=== PATIENT | male | born 1985 | race Caucasian/White ===

== ENCOUNTER 2022-08-31 13:24 | Emergency (ER) | payer MEDICARE, MEDICAID ==
[~2022-08-31] VITALS: Ht 188 cm; Wt 134.0 kg
[2022-08-31 15:12] LABS: BASOPHILS # (AUTO) 0.1 X10'3 (0-0.2); BASOPHILS % (AUTO) 0.9 % (0-1); EOSINOPHILS % (AUTO) 0.2 % (0-6); HEMATOCRIT 51.7 % (42.0-52.0); HEMOGLOBIN 17.8 g/dl (14.0-17.9); LYMPHOCYTES % (AUTO) 10.4 % (21-51); MEAN CORPUSCULAR HEMOGLOBIN 31.4 PG (27.0-31.0); MEAN CORPUSCULAR HGB CONC 34.4 g/dL (33.0-36.5); MEAN CORPUSCULAR VOLUME 91.3 FL (78-98); MEAN PLATELET VOLUME 8.2 FL (7.4-10.4); MONOCYTES # (AUTO) 0.5 X10'3 (0-0.9); MONOCYTES % (AUTO) 4.5 % (2-12); NEUTROPHILS # (AUTO) 8.5 X10'3 (1.8-7.7); PLATELET COUNT 260 X10'3 (140-440); RED BLOOD COUNT 5.66 X10'6 (4.70-6.10); RED CELL DISTRIBUTION WIDTH 14.3 % (11.5-14.5); WHITE BLOOD COUNT 10.1 X10'3 (4.5-11.0)
[2022-08-31 15:27] LABS: ALANINE AMINOTRANSFERASE 57 U/L (12-78); ALBUMIN 4.8 G/DL (3.4-5.0); ALBUMIN/GLOBULIN RATIO 1.2 (1.1-1.5); ALKALINE PHOSPHATASE 104 IU/L (46-116); ANION GAP 13 (8-16); ASPARTATE AMINO TRANSFERASE 37 U/L (10-37); BILIRUBIN,TOTAL 1.6 MG/DL (0.1-1.0); BLOOD UREA NITROGEN 13 MG/DL (7-18); CALCIUM 9.7 MG/DL (8.5-10.1); CHLORIDE 100 MMOL/L (99-107); CREATININE 0.93 MG/DL (0.60-1.10); GLUCOSE 138 MG/DL (70-104); POTASSIUM 3.4 MMOL/L (3.5-5.1); SODIUM 141 MMOL/L (135-145); TOTAL CARBON DIOXIDE 28.4 MMOL/L (24-32); TOTAL PROTEIN 8.7 G/DL (6.4-8.2); eGFR 90 ML/MIN
[2022-08-31 15:38] LABS: ETHANOL < 0.010 GM/DL (0.0-0.010)
[2022-08-31 16:56] LABS: CLARITY,URINE CLEAR (Clear); COLOR,URINE YELLOW (Yellow); PH,URINE 5.5 (4.8-8.0); UA COLLECTION TYPE VOIDED
[2022-08-31 16:57] LABS: GLUCOSE, URINE NEGATIVE (Neg); KETONES,URINE >=80 mg/dl (Neg); NITRITES, URINE NEGATIVE (Neg); OCCULT BLOOD,URINE MODERATE (Neg); PROTEIN,URINE 30 mg/dl (Neg)
[2022-08-31 16:58] LABS: LEUKOCYTE ESTERASE ,URINE NEGATIVE (Neg); UROBILINOGEN,URINE 0.2 E.U/dL (0.2-1.0)
[2022-08-31 17:03] LABS: BACTERIA,URINE NONE SEEN /HPF (Neg); HYALINE CASTS 0-3 /LPF (NEGATIVE); MUCUS STRANDS FEW /LPF (Neg); SQUAMOUS EPITHELIAL CELL,UR FEW /LPF (FEW); URINE AMPHETAMINE SCREEN NEGATIVE (Neg); URINE BARBITUATE SCREEN NEGATIVE (Neg); URINE BENZODIAZEPINES SCREEN NEGATIVE (Neg); URINE CANNABINOID SCREEN POSITIVE (Neg); URINE COCAINE SCREEN NEGATIVE (Neg); URINE METHADONE SCREEN NEGATIVE (Neg); URINE OPIATE SCREEN NEGATIVE (Neg); URINE PHENCYCLIDINE SCREEN NEGATIVE (Neg); WBC,URINE 0-4 /HPF (0-4)
[2022-08-31] MEDS ORDERED: POTASSIUM BICARB 20meq eff tab 20 MEQ TABLET.EFF PO STA (17:43)
--- NOTE | 2022-08-31 18:58 | NUR ---
[facility] at [facility] doing pt eval. pt sitting on bed no visual complaints/distress seen.
[2022-08-31 19:00] VITALS: BP 158/89
[2022-08-31] MEDS ORDERED: DOCU-342 PO ×4 (19:49→19:55)
[2022-08-31] MEDS ORDERED: HALO10TA13 PO ×4 (19:49→19:55)
[2022-08-31] MEDS ORDERED: BENZ0.5T43 PO ×4 (19:49→19:55)
[2022-08-31] MEDS ORDERED: ATEN-169 PO (19:55)
== END 2022-08-31 20:47 | disposition home or self-care (01) ==
LOC: ER 13:24
DX: F20.9 Schizophrenia, unspecified (principal); Z20.822 Contact with and (suspected) exposure to COVID-19; F29 Unspecified psychosis not due to a substance or known physiological condition; F31.9 Bipolar disorder, unspecified
CPT/HCPCS: 36415; 80053; 80305; 80320; 81001; 84443; 85025; 87811; 99283

== ENCOUNTER 2023-06-17 09:57 | Emergency (ER) | payer MEDICARE, MEDICAID ==
[~2023-06-17] VITALS: Ht 185.4 cm; Wt 136.2 kg
[~2023-06-17 09:57] MED LIST: BENZ0.5T3 PO; DOCU-391 PO; HALO10TA13 PO
[2023-06-17 10:47] LABS: BILIRUBIN,URINE NEGATIVE (Neg); CLARITY,URINE CLEAR (Clear); COLOR,URINE YELLOW (Yellow); GLUCOSE, URINE NEGATIVE (Neg); KETONES,URINE NEGATIVE (Neg); LEUKOCYTE ESTERASE ,URINE NEGATIVE (Neg); NITRITES, URINE NEGATIVE (Neg); OCCULT BLOOD,URINE SMALL (Neg); PROTEIN,URINE NEGATIVE (Neg); UROBILINOGEN,URINE 0.2 E.U/dL (0.2-1.0)
[2023-06-17 10:48] LABS: UA COLLECTION TYPE VOIDED
[2023-06-17 10:53] LABS: SQUAMOUS EPITHELIAL CELL,UR FEW /LPF (FEW); TRANSITIONAL EPI CELLS,URINE FEW /HPF
[2023-06-17 10:54] LABS: WBC,URINE 0-4 /HPF (0-4)
[2023-06-17 10:55] LABS: BACTERIA,URINE FEW /HPF (Neg)
[2023-06-17 11:03] LABS: URINE AMPHETAMINE SCREEN NEGATIVE (Neg); URINE BARBITUATE SCREEN NEGATIVE (Neg); URINE BENZODIAZEPINES SCREEN NEGATIVE (Neg); URINE CANNABINOID SCREEN POSITIVE (Neg); URINE COCAINE SCREEN NEGATIVE (Neg); URINE METHADONE SCREEN NEGATIVE (Neg); URINE OPIATE SCREEN NEGATIVE (Neg); URINE PHENCYCLIDINE SCREEN NEGATIVE (Neg)
[2023-06-17 11:12] LABS: BASOPHILS # (AUTO) 0.1 X10'3 (0-0.2); BASOPHILS % (AUTO) 0.7 % (0-1); EOSINOPHILS % (AUTO) 0.2 % (0-6); HEMATOCRIT 49.4 % (42.0-52.0); LYMPHOCYTES # (AUTO) 1.3 X10'3 (1.1-4.8); LYMPHOCYTES % (AUTO) 12.1 % (21-51); MEAN CORPUSCULAR HEMOGLOBIN 31.7 PG (27.0-31.0); MEAN CORPUSCULAR HGB CONC 34.3 g/dL (33.0-36.5); MEAN CORPUSCULAR VOLUME 92.4 FL (78-98); MEAN PLATELET VOLUME 7.9 FL (7.4-10.4); MONOCYTES # (AUTO) 0.5 X10'3 (0-0.9); MONOCYTES % (AUTO) 4.8 % (2-12); NEUTROPHILS # (AUTO) 8.6 X10'3 (1.8-7.7); NEUTROPHILS % (AUTO) 82.2 % (42-75); PLATELET COUNT 250 X10'3 (140-440); RED BLOOD COUNT 5.35 X10'6 (4.70-6.10); RED CELL DISTRIBUTION WIDTH 13.6 % (11.5-14.5); WHITE BLOOD COUNT 10.4 X10'3 (4.5-11.0)
[2023-06-17 11:36] LABS: ALANINE AMINOTRANSFERASE 72 U/L (12-78); ALBUMIN 3.8 G/DL (3.4-5.0); ALKALINE PHOSPHATASE 99 IU/L (46-116); ANION GAP 7 (8-16); ASPARTATE AMINO TRANSFERASE 38 U/L (10-37); BILIRUBIN,TOTAL 0.9 MG/DL (0.1-1.0); BLOOD UREA NITROGEN 10 MG/DL (7-18); CALCIUM 9.2 MG/DL (8.5-10.1); CHLORIDE 102 MMOL/L (99-107); CREATININE 0.91 MG/DL (0.60-1.10); GLUCOSE 132 MG/DL (70-104); POTASSIUM 3.8 MMOL/L (3.5-5.1); SODIUM 140 MMOL/L (135-145); TOTAL CARBON DIOXIDE 31.1 MMOL/L (24-32); TOTAL PROTEIN 7.8 G/DL (6.4-8.2); eCRCL 122 ML/MIN; eGFR > 90 ML/MIN
[2023-06-17 11:44] LABS: THYROID STIMULATING HORMONE 2.61 ulU/ml (0.34-4.50)
[2023-06-17] MEDS ORDERED: BENZ0.5T36 PO (12:31)
[2023-06-17] MEDS ORDERED: DOCU100C40 PO (12:31)
[2023-06-17] MEDS ORDERED: haloperidol 5mg tablet PO SCH (20:00)
[2023-06-17] MEDS: docusate sod 100mg capsule PO SCH (20:00)
[2023-06-17] MEDS: benztropine 1mg tablet PO SCH (20:14)
[2023-06-17] MEDS: haloperidol 5mg tablet PO SCH (20:15)
[2023-06-18] MEDS ORDERED: haloperidol lactate 5mg/ml inj IM STA (00:09)
[2023-06-18] MEDS ORDERED: diazepam inj 5 MG/ML inj. IM STA (00:09)
[2023-06-18] MEDS: haloperidol 5mg tablet PO SCH ×2 (07:59→20:41)
[2023-06-18] MEDS: docusate sod 100mg capsule PO SCH ×2 (07:59→20:45)
[2023-06-18] MEDS: benztropine 1mg tablet PO SCH (20:44)
[2023-06-19] MEDS: haloperidol 5mg tablet PO SCH ×2 (09:01→20:44)
[2023-06-19] MEDS: docusate sod 100mg capsule PO SCH ×2 (09:01→20:44)
[2023-06-19] MEDS: benztropine 1mg tablet PO SCH (20:44)
[2023-06-20] MEDS: docusate sod 100mg capsule PO SCH ×2 (07:54→20:02)
[2023-06-20] MEDS: haloperidol 5mg tablet PO SCH ×2 (07:54→20:02)
[2023-06-20] MEDS: benztropine 1mg tablet PO SCH (20:02)
[2023-06-21] MEDS: docusate sod 100mg capsule PO SCH ×2 (08:25→20:06)
[2023-06-21] MEDS: haloperidol 5mg tablet PO SCH ×2 (08:26→20:07)
[2023-06-21] MEDS: benztropine 1mg tablet PO SCH (20:07)
[2023-06-22 05:59] VITALS: BP 139/65; PULSE 79; TEMP 98.3; O2SAT 96
[2023-06-22 07:00] VITALS: RESP 17
[2023-06-22] MEDS: haloperidol 5mg tablet PO SCH (07:03)
[2023-06-22] MEDS: docusate sod 100mg capsule PO SCH (07:03)
== END 2023-06-22 13:30 | disposition home or self-care (01) ==
LOC: ER 09:58
DX: R45.850 Homicidal ideations (principal); Z20.822 Contact with and (suspected) exposure to COVID-19; R62.50 Unspecified lack of expected normal physiological development in childhood; F41.9 Anxiety disorder, unspecified; F20.9 Schizophrenia, unspecified; Z79.899 Other long term (current) drug therapy
CPT/HCPCS: 36415; 80053; 80305; 81001; 84443; 85025; 87811; 96372; 99285; J1630; J3360